=== PATIENT | female | born 1975 | race Caucasian/White ===

== ENCOUNTER → 2017-12-02 | Day surgery (SDC) | payer OTHER ==
[~2017-12-02] MED LIST: ACETAMINOPHEN 1000 MG/100 ML IV ONE; CEFAZOLIN SOD 1 GM VIAL ONE; DEXAMETHASONE SOD PHOS INJ 4 MG/ML VIAL ONE; FENTANYL CITRATE/PF 100MCG/2 ML INJ ONE; GLYCOPYRROLATE INJ 1MG/ 5 ML SYR ONE; LIDOCAINE 1% W/EPINEPHRINE 20 ML VIAL ONE; LIDOCAINE HCL 2% LOCAL INJ 5 ML SDV VIAL INJ ONE; MIDAZOLAM HCL 2 MG/2 ML VIAL ONE; MORPHINE SULFATE 2 MG/ML SYR ONE; MORPHINE SULFATE INJ 10 MG/ML ONE; MUPIROCIN 2% OINT 22 GM TUBE ONE; NEOSTIGMINE 5 MG/5ML SYR ONE; ONDANSETRON HCL INJ 2 MG/ML VIAL ONE; PHENYLEPHRINE HCL 1% 10 MG/ML VIAL ONE; PROPOFOL IV EMULSION 10 MG/ML 20 ML VIAL ONE; SEVOFLURANE INHAL SOLN 250 ML PEN BTL ONE
[2017-12-02 10:20] VITALS: BP 120/81
--- NOTE | 2017-12-02 11:03 | Operative Report ---
DATE OF PROCEDURE: December 02, 2017 PREOPERATIVE DIAGNOSES 1. Basal cell carcinoma, right eyelid/medial canthus, morpheaform type, status post Mohs micrographic surgery. 2. Basal cell carcinoma of left nose. 3. Basal cell carcinoma of left cheek, status post Mohs defect 9 cm squared. PROCEDURES 1. Flap closure of right medial canthal area, 6 cm squared. 2. Flap closure, left cheek and left nose, 120 cm squared. ANESTHESIA: General. HISTORY: The patient is a 42-year-old female who has biopsy-proven morpheaform basal cell carcinoma that is involving the right medial canthus and the left side of the nose and cheek-ala junction. The patient underwent 2 different Mohs surgery dates. On the 1st date, she had the right medial canthus removed full thickness, and the defect was left open. She underwent Mohs micrographic surgery yesterday, which resulted in a 3-cm x 2.5-cm defect involving the medial aspect of the left cheek and the lateral aspect of the left ala and left nasal sidewall. The risks, benefits and alternatives of treatment were discussed with the patient and the family preoperatively, and she is prepared to undergo the procedures outlined. DETAILS OF PROCEDURE: The patient was marked preoperatively in the holding area. She was brought to the operating theater. After the induction of adequate general anesthesia, she was prepped and draped in a supine position. A time out was performed. The procedure was begun on the left side first. The proposed cervicofacial flap was marked out with proposed incisions along the infraorbital rim and the nasolabial fold. The flap was then infiltrated with 1% Xylocaine with epinephrine. Approximately 15 mL was used. After waiting an appropriate amount of time for maximum vasoconstrictive effect, the incisions in the nasolabial region and the infraorbital rim were made through the skin and subcutaneous tissues. Bleeding was controlled using electrocautery. Using electrocautery, the cervicofacial flap was undermined in the subcutaneous plane until the level of the mandible was reached. At this point, the flap was tentatively advanced into position. It was noted that it reached the defect without difficulty and without undue tension. At this point, the flap bed was made hemostatic using electrocautery. All of the skin edges were sharply excised through the skin and subcutaneous tissue layer in order to freshen up the edges and remove any areas of partial ischemia. In the deep surface of the flap, 4-0 Vicryl was used in an interrupted fashion to approximate the subcutaneous tissue and keep the flap advanced so that it will not retract. After this was performed, the flap was inset using a combination of 5-0 and 6-0 Prolene sutures in an interrupted horizontal mattress fashion. Care was taken to contour the flap around the remaining ala, nasal base and the left lateral nasal sidewall. At the completion of the insetting, the flap was noted to be well vascularized and the incisions were hemostatic. The measurement of the flap that was raised on the left side, the base of the flap was approximately 15 cm wide x approximately 15 cm long. This gave it a total surface area of 225 cm squared. On the right side, the medial canthal defect was sharply debrided of devitalized tissue around its edges. The Mohs defect measured approximately 1 cm in diameter. A pedicled single lobe flap was designed using the skin of the glabellar region. The area was then infiltrated with 1% Xylocaine with epinephrine. After waiting an appropriate amount of time for maximum vasoconstrictive effect, a pedicle flap was incised through the skin and subcutaneous tissue. Bleeding was controlled using electrocautery. The flap was elevated in the subcutaneous plane and widely undermined. It was then transposed approximately 90 degrees and inset using 6-0 Prolene sutures in an interrupted fashion. The remainder of the defect was closed as well using 6-0 Prolene in an interrupted fashion. The measurements of the defect plus the flap were 6 cm squared. At the completion of the insetting, the flap was noted to be well vascularized. The incisions were hemostatic. Bactroban ointment, Xeroform gauze and sterile dressings were applied to both sides of the face. The estimated blood loss for the procedure was approximately 25 to 30 mL. After the dressings were applied, the patient was extubated and returned to the recovery room in satisfactory condition. She was discharged with a postoperative instruction sheet as well as a followup appointment. Job#: [id number]
== END | disposition home or self-care (01) ==
LOC: OR 05:04
PROVIDERS: ATTEND Plastic Surgery
DX: Z85.828 Personal history of other malignant neoplasm of skin (principal); I10 Essential (primary) hypertension; R06.02 Shortness of breath
CPT/HCPCS: 14060; 14301; 14302 ×6; 81025; J0690; J1100; J2001; J2250; J2270 ×2; J2370; J2405; J3490